=== PATIENT | male | born 1990 | race African-American/Black ===

== ENCOUNTER 2021-05-15 14:55 | Emergency (ER) | payer BC ==
[~2021-05-15] VITALS: Ht 188 cm; Wt 110.0 kg
[2021-05-15 15:30] VITALS: BP 140/80
--- NOTE | 2021-05-15 15:41 | PHYS DOC ---
General Adult EDM: Chief Complaint: HEADACHE HPI: HPI: Patient is a 30 year old male who presents with vomiting and headache x 2 days. Patient is wanting a covid test and a work note. He states he has not taken any medications. He denies soa, chest pain, cough, abdominal pain, diarrhea, constipation, fever, back pain, neck pain, urinary symptoms, weakness, numbness or tingling, dizziness, vision changes. Rates his headache a 2/10 aching. Patient denies any past medical history. Review of Systems: Review of Systems: Constitutional: Denies fever or +chills. [] Eyes: Denies change in visual acuity. [] HENT: Denies nasal congestion or sore throat. [] Respiratory: Denies cough or shortness of breath. [] Cardiovascular: Denies chest pain or edema. [] GI: Denies abdominal pain, +nausea, +vomiting, denies bloody stools or diarrhea. [] : Denies dysuria. [] Musculoskeletal: Denies back pain or joint pain. [] Integument: Denies rash. [] Neurologic: +intermittent headache, denies focal weakness or sensory changes. [] Endocrine: Denies polyuria or polydipsia. [] Lymphatic: Denies swollen glands. [] Psychiatric: Denies depression or anxiety. [] Heart Score: C/O Chest Pain: No Physical Exam: PE: Constitutional: Well developed, well nourished, no acute distress, non-toxic appearance. [] HENT: Normocephalic, atraumatic, bilateral external ears normal, oropharynx moist, no oral exudates, nose normal. [] Eyes: PERRLA, EOMI, conjunctiva normal, no discharge. [] Neck: Normal range of motion, no tenderness, supple, no stridor. [] Cardiovascular:Heart rate regular rhythm, no murmur [] Lungs & Thorax: Bilateral breath sounds clear to auscultation [] Abdomen: Bowel sounds normal, soft, no tenderness, no masses, no pulsatile masses. [] Skin: Warm, dry, no erythema, no rash. [] Back: No tenderness, no CVA tenderness. [] Extremities: No tenderness, no cyanosis, no clubbing, ROM intact, no edema. [] Neurologic: Alert and oriented X 3, normal motor function, normal sensory function, no focal deficits noted. [] Psychologic: Affect normal, judgement normal, mood normal. [] Normal Physical Exam EKG: EKG: [] Radiology/Procedures: Radiology/Procedures: [] Course & Med Decision Making: Course & Med Decision Making Pertinent Labs and Imaging studies reviewed. (See chart for details) COVID-19 CRITERIA: The patient was evaluated during the global COVID-19 pandemic, and that diagnosis was suspected/considered upon their initial presentation. Their evaluation, treatment and testing was consistent with current guidelines for patients who present with complaints or symptoms that may be related to COVID-19. See HPI. Alert and oriented x4. Ambulatory steady gait. Speaks in full clear sentences. Mucous membranes are moist. Abdomen soft and nontender. PERRLA. No nystagmus. Vital signs are within normal limits. Cap refill less than 2 seconds. No nuchal rigidity. Lungs are clear to all station all lobes. No nasal drainage. Patient is also concerned that he has acid reflux and states he has taken Pepcid in the past but had stopped taking Pepcid and now he has acid reflux again. Denies any kind of sore throat or ear pain. Patient is successfully p.o. challenge. Rapid Covid and influenza are negative. Patient w ill be sent home and follow-up with a primary care physician. Patient is given resources for a primary care physician. [] Rhina Disclaimer: Rhina Disclaimer: This electronic medical record was generated, in whole or in part, using a voice recognition dictation system. COVID-19 Patient Risks: Age 65 or older: No Sign of co-morbidity: No Exp to person + for COVID: No Exp to PUI: No Travel from affected area: No Lower respiratory symptoms: No Fever: Yes (chills) Other: Yes (nausea, vomiting) PPE Use: Full PPE with N95 mask or PAPR: Yes Departure Departure Impression: Primary Impression: Headache Qualified Codes: R51.9 - Headache, unspecified Additional Impressions: Vomiting Qualified Codes: R11.10 - Vomiting, unspecified Acid reflux Qualified Codes: K21.9 - Gastro-esophageal reflux disease without esophagiti s Disposition: HOME / SELF CARE / HOMELESS Condition: STABLE Patient Instructions: General Headache Without Cause, Nausea and Vomiting Additional Instructions: Follow-up with a primary care provider. Take medications as prescribed and with food. Drink plenty fluids to stay hydrated. Take Tylenol or ibuprofen for any headache you may have. Scripts Famotidine (PEPCID) 20 Mg Tablet 20 MG PO BID, #30 TAB Prov: PEGGY LEBLANC APRN 05/15/21 PEGGY LEBLANC APRN May 15, 2021 15:41
[2021-05-15] MEDS ORDERED: ONDANSETRON ODT 4 MG TAB.RAPDIS. PO ONE (15:45)
[2021-05-15] MEDS ORDERED: ACETAMINOPHEN 325 MG TABLET. PO ONE (15:45)
[2021-05-15] MEDS ORDERED: ONDANSETRON ODT 4 MG TAB.RAPDIS. ONE (15:47)
[2021-05-15 16:17] LABS: INFLUENZA A PATIENT NEGATIVE (NEGATIVE); INFLUENZA B PATIENT NEGATIVE (NEGATIVE)
[2021-05-15] MEDS ORDERED: FAMO-63 PO (16:22)
== END 2021-05-15 16:47 | disposition home or self-care (01) ==
LOC: ER 14:55
DX: K21.9 Gastro-esophageal reflux disease without esophagitis (principal); R11.2 Nausea with vomiting, unspecified; R51.9 Headache, unspecified; Z20.822 Contact with and (suspected) exposure to COVID-19
CPT/HCPCS: 87428; 99283

== ENCOUNTER → 2021-06-28 | Emergency (ER) | payer BC ==
[~2021-06-28] MED LIST: FAMO-63 PO
== END | disposition left against medical advice (07) ==
LOC: ER 18:45
DX: R51.9 Headache, unspecified (principal); R11.10 Vomiting, unspecified; Z53.21 Procedure and treatment not carried out due to patient leaving prior to being seen by health care provider